=== PATIENT | male | born 1970 | race African-American/Black ===

== ENCOUNTER 2018-02-28 17:01 | Inpatient (IN) | payer MEDICAID ==
[~2018-02-28] VITALS: Ht 188 cm; Wt 109.1 kg
--- NOTE | ~2018-02-28 | OP ---
PATIENT NAME: REY KWONG MEDICAL RECORD: [id number] :74 LOCATION:D. D.2108 ADMISSION DATE:02/28/18 SURGEON: ARA NOYOLA MD DATE OF OPERATION: 03/07/2018 REFERRING PHYSICIAN: Dave Castañeda MD OPERATION PERFORMED: Insertion of a tunneled dialysis catheter with fluoroscopic guidance. SURGEON: Ara Noyola MD. ANESTHESIA: TIVA and Local 1% lidocaine plain. PREOPERATIVE NOTE: Ms. Kwong is a very nice 47-year-old -Malaysian male with end-stage renal disease on chronic hemodialysis in [place], [place]. He had been dialyzing successfully with a left radiocephalic arteriovenous fistula until he suffered thrombosis during the first week of February. He had a percutaneous mechanical thrombolysis procedure done at [facility] with 2 sticks and that was a successful procedure, but the patient then subsequently developed a severe MRSA infection at the proximal puncture site. I had taken him to the operating room last week and performed an excisional procedure of a typical MRSA type soft tissue infection with honeycombing and abscess. At that time, I also ligated his AV fistula and placed a temporary Trialysis catheter because of his bacteremia. His bacteremia has now cleared and he is essentially ready for discharge and he is brought to the operating room to place a tunneled catheter. I will plan to wait for about 4-6 weeks before returning him to the operating room to make a new brachiocephalic AV fistula there on the left and we will be waiting for his wound to heal as well of course. With the patient under TIVA in supine position, the neck was prepped and draped in a sterile manner. I removed the Trialysis catheter from the right internal jugular vein over a guidewire under fluoroscopy and then passed additional dilators and finally a dilator peel-away sheath was inserted. I chose a 19-cm HemoSplit tunneled dialysis catheter and made an incision beneath the clavicle and placed the new catheter in a subcutaneous tunnel between there and the cervical incision. I then inserted the catheter through the peel-away sheath and positioned it appropriately with both hips and the right atrium. Both lumens were then accessed and aspirated, free return of blood was confirmed. They were then flushed with saline and then heparin locked, clamped and capped. The catheter was fixed to the skin near the entry site with 2-0 Prolene and a chlorhexidine Biopatch was applied and the standard CVL dressing over that. The cervical incision was closed with inverted interrupted 3-0 Vicryl and Dermabond glue and it was dressed with Maxorb Ag, Tegaderm, and Cavilon skin prep. The patient tolerated the procedure well and was returned to his room in stable condition. The new dialysis catheter may be utilized immediately and the patient will be ready for discharge I believe today or tomorrow and have a return appointment in my office. TRANSINT:[id number] Voice Confirmation ID: [id number] DOCUMENT ID: [id number] OPERATIVE REPORT [id number] REY KWONG JAMES MD CC: [id number] DICTATION DATE: 03/21/18 1144 CAT DOG OR OTHER PET GROOMER: 03/21/18 1210 DIS IN 03/07/18 [facility] [address] [place] [address]
--- NOTE | ~2018-02-28 | OP ---
PATIENT NAME: REY ERIC MEDICAL RECORD: [id number] :74 LOCATION:D. D.2108 ADMISSION DATE:02/28/18 SURGEON: ARA NOYOLA MD DATE OF OPERATION: 03/02/2018 REFERRING PHYSICIAN: Domi Castañeda MD SURGEON: Ara Noyola MD ANESTHESIA: General per N[employer] WAREHOUSE SELECTOR. PREOPERATIVE DIAGNOSES: Methicillin-resistant Staphylococcus aureus staphylococcal skin and soft tissue infection, left arm at site of recent dialysis fistula access, now with abscess formation, cellulitis and likely sepsis with bacteremia. POSTOPERATIVE DIAGNOSES: Methicillin-resistant Staphylococcus aureus staphylococcal skin and soft tissue infection, left arm at site of recent dialysis fistula access, now with abscess formation, cellulitis and likely sepsis with bacteremia. OPERATION PERFORMED: First insertion of a right internal jugular 20-cm Trialysis acute dialysis catheter done with ultrasound and fluoroscopic guidance. Then, fistulogram followed by open ligation of AV fistula and then excisional debridement and drainage of complex honeycomb type abscess overlying the AV fistula in the proximal forearm with an application of wound VAC dressing. PREOPERATIVE NOTE: This very nice 47-year-old -[place] male from [place] has end-stage renal disease and is on chronic hemodialysis. He has been dialyzing with a left radiocephalic forearm AV fistula constructed by Dr. Nguyen at [facility] in May or June of this year. He has only been on dialysis for a few months. Earlier this week, he had thrombosed his graft and he had a fistulogram and mechanical thrombolysis procedure done at [facility] which was successful, but then he subsequently developed an abscess with systemic septic symptoms. The abscess is developing at the proximal access site in the forearm. The patient was admitted yesterday. He has been started on appropriate antibiotics and is brought to the operating room at this time with plans to place a dialysis catheter and then drain the abscess, do a fistulogram and possibly ligate the fistula. DESCRIPTION OF PROCEDURE: Under general anesthesia, the patient was prepped and draped in a sterile manner. Ultrasound was used to locate the right internal jugular vein which was of normal caliber and fully compressible and normal in every way. I made an incision at the base of the neck on the right and inserted a needle and then a guidewire under ultrasound guidance into the internal jugular vein and under fluoroscopy, advanced the wire into the right atrium. Dilators were passed and lastly a 20-cm Trialysis catheter was inserted. All 3 lumens were accessed and aspirated, free return of blood confirmed. They were then flushed easily with saline and heparin locked. The catheter was sutured in place with 2-0 Prolene and a standard CVL dressing with chlorhexidine Biopatch was applied. The patient was then totally reprepped and redraped with the left arm free in the operative field. This morning he is draining pus from several perforations OPERATIVE REPORT [id number] REY ERIC sites and the skin over this abscess. This has a very characteristic appearance of a honeycomb-type abscess with necrosis and induration consistent with community-acquired MRSA lesion. I accessed the fistula near the wrist with micropuncture technique and ultrasound guidance and performed a fistulogram, which showed no evidence of pseudoaneurysm or leak or for that matter obstruction. Ultrasound examination demonstrated extensive edema surrounding the fistula and no single discrete abscess cavity. The micropuncture needle was removed and hemostasis obtained at that puncture site with a [id number] 4-0 Prolene. At that point, I decided I would have to ligate this fistula and made a longitudinal incision over it distal to the abscess and exposed the fistula and ligated it doubly with 2-0 Vicryl. I then incised the abscess and actually excised a circular divot of skin and subcutaneous tissues. This was about 2 cm in diameter and then continued to debride necrotic and infected tissue beneath it. This exposed the fistula, but there was no pulsation present obviously. I went ahead and ligated this vein again distally with 2-0 Vicryl to be sure to minimize the risks of any bleeding. Debrided the wound thoroughly and infiltrated it with 0.25% Marcaine with epinephrine to help with hemostasis. Irrigated the wound and then placed a wound VAC dressing with a black sponge in the wound and applied a VeraFlo wound VAC device with plans to do intermittent Dakin solution irrigation postop. The incision through which the fistula was initially ligated was closed with several interrupted 4-0 Prolenes and then dressed wet to dry with gentamicin and Ancef solution. This wound is of course subject to becoming infected postop and will require wet-to-dry dressings and good nursing care and observation. It was dressed in such a way that is not under the plastic of the wound VAC dressing. The patient was awakened and taken to the recovery room in stable condition. Blood loss was about 5 cc, none replaced. All sponges, instruments and needles were accounted for. No drain was used other than the wound VAC dressing and I submitted a swab for culture and sensitivity and Gram stain, but I did not submit tissue for histopathology. PLAN: The patient will go back to the floor with his wound VAC dressing periodically irrigating with Dakin's, the arms to be elevated and the wet-to-dry portion of his dressing changed daily and the wound dressed with a saline wet gauze. The patient will be asked to shower daily with Hibiclens and apply Bactroban to both nares b.i.d. for 2 weeks. The patient is presently on vancomycin and Zosyn. I think this is a very characteristic MRSA infection and we probably can stop the Zosyn. I would like to put him on doxycycline in addition to the vancomycin. He will probably go home on doxycycline and perhaps a second antibiotic depending on his response and will need home health for wound VAC care and an outpatient followup in my office. TRANSINT:[id number] Voice Confirmation ID: [id number] DOCUMENT ID: [id number] ARA NOYOLA MD at 2153 CC: DOMI CASTAÑEDA MD [id number] DICTATION DATE: 03/02/18 1221 CORPORATE SCHEDULER: 03/02/18 1352 ADM IN [place] [id number] [place] [id number]
[2018-02-28 20:00] VITALS: BP 173/100
[2018-02-28 20:19] VITALS: BP 191/99; BMI 31.7
[2018-03-01] VITALS: BP 157/70
[2018-03-01 04:00] VITALS: BP 167/96
[2018-03-01 05:20] LABS: BASOPHILS 0.3 % (0-2); EOSINOPHILS 0.7 % (0-7); HEMATOCRIT 34.4 % (42.0-54.0); HEMOGLOBIN 11.5 g/dL (13.5-17.5); IMMATURE GRANULOCYTES 0.3 % (0-5); LYMPHOCYTES 11.6 % (15-50); MCH 26.5 pg (26.0-34.0); MCHC 33.4 g/dL (31.0-37.0); MCV 79.3 fL (80.0-100.0); MEAN PLATELET VOLUME 9.7 fL (7.4-10.4); MONOCYTES 16.7 % (2-11); NEUTROPHILS 70.4 % (40-80); PLATELET COUNT 237 10x3/uL (130-400); RBC 4.34 10x6/uL (4.20-6.10); RDW 13.9 % (11.5-14.5); WBC 11.9 10x3/uL (4.8-10.8)
[2018-03-01 05:55] LABS: ALBUMIN 3.2 g/dL (3.4-5.0); ANION GAP 15.2 mmol/L (8-16); BILIRUBIN - TOTAL 0.52 mg/dL (0.2-1.3); CALCIUM 8.9 mg/dL (8.5-10.1); CARBON DIOXIDE 24.5 mmol/L (21.0-32.0); CREATININE - SERUM 7.2 mg/dL (0.6-1.3); POTASSIUM - SERUM 3.7 mmol/L (3.5-5.1); PROTEIN - SERUM 7.7 g/dL (6.4-8.2); VANCOMYCIN - RANDOM 2.5 ug/mL (10.0-20.0)
[2018-03-01 07:54] VITALS: BP 161/85
[2018-03-01 10:59] VITALS: BMI 31.7
[2018-03-01 11:27] VITALS: BP 150/83
[2018-03-01 14:55] VITALS: BP 160/87
[2018-03-01 20:00] VITALS: BP 144/75
[2018-03-02] VITALS: BP 148/79
[2018-03-02 05:23] LABS: BASOPHILS 0.4 % (0-2); HEMATOCRIT 33.9 % (42.0-54.0); HEMOGLOBIN 11.1 g/dL (13.5-17.5); IMMATURE GRANULOCYTES 0.1 % (0-5); LYMPHOCYTES 15.7 % (15-50); MCHC 32.7 g/dL (31.0-37.0); MCV 79.4 fL (80.0-100.0); MEAN PLATELET VOLUME 10.2 fL (7.4-10.4); MONOCYTES 15.5 % (2-11); NEUTROPHILS 67.3 % (40-80); PLATELET COUNT 242 10x3/uL (130-400); RBC 4.27 10x6/uL (4.20-6.10); WBC 13.4 10x3/uL (4.8-10.8)
[2018-03-02 05:47] LABS: ANION GAP 18.7 mmol/L (8-16); CALCIUM 8.7 mg/dL (8.5-10.1); CREATININE - SERUM 7.7 mg/dL (0.6-1.3); PHOSPHOROUS 3.6 mg/dL (2.5-4.9); POTASSIUM - SERUM 3.7 mmol/L (3.5-5.1); VANCOMYCIN - RANDOM 13.4 ug/mL (10.0-20.0)
[2018-03-02 05:53] VITALS: BP 143/66
[2018-03-02 07:59] VITALS: BP 151/79
[2018-03-02 11:56] VITALS: Ht 188 cm; Wt 109.1 kg
[2018-03-02 15:47] VITALS: BP 146/86
[2018-03-02 20:00] VITALS: BP 152/87
[2018-03-03] VITALS: BP 150/86
[2018-03-03 04:00] VITALS: BP 159/92
[2018-03-03 05:37] LABS: BASOPHILS 0.5 % (0-2); EOSINOPHILS 2.8 % (0-7); HEMATOCRIT 34.2 % (42.0-54.0); HEMOGLOBIN 11.3 g/dL (13.5-17.5); IMMATURE GRANULOCYTES 0.3 % (0-5); LYMPHOCYTES 16.2 % (15-50); MCH 26.3 pg (26.0-34.0); MCV 79.7 fL (80.0-100.0); MEAN PLATELET VOLUME 10.4 fL (7.4-10.4); MONOCYTES 12.2 % (2-11); PLATELET COUNT 235 10x3/uL (130-400); RBC 4.29 10x6/uL (4.20-6.10); RDW 13.9 % (11.5-14.5); WBC 12.7 10x3/uL (4.8-10.8)
[2018-03-03 06:11] LABS: POTASSIUM - SERUM 3.5 mmol/L (3.5-5.1)
[2018-03-03 06:41] LABS: CALCIUM 8.6 mg/dL (8.5-10.1); CARBON DIOXIDE 23.5 mmol/L (21.0-32.0); PHOSPHOROUS 3.5 mg/dL (2.5-4.9)
[2018-03-03 06:45] LABS: CREATININE - SERUM 5.7 mg/dL (0.6-1.3)
[2018-03-03 08:04] VITALS: BP 153/90
[2018-03-03 11:01] VITALS: BP 142/86
[2018-03-03 20:00] VITALS: BP 148/75
[2018-03-04 00:11] VITALS: BP 170/80
[2018-03-04 04:00] VITALS: BP 159/86
[2018-03-04 04:07] LABS: BASOPHILS 0.8 % (0-2); EOSINOPHILS 3.7 % (0-7); HEMATOCRIT 34.1 % (42.0-54.0); HEMOGLOBIN 11.3 g/dL (13.5-17.5); IMMATURE GRANULOCYTES 0.3 % (0-5); LYMPHOCYTES 21.7 % (15-50); MCH 25.9 pg (26.0-34.0); MCHC 33.1 g/dL (31.0-37.0); MCV 78.2 fL (80.0-100.0); MEAN PLATELET VOLUME 9.7 fL (7.4-10.4); MONOCYTES 12.9 % (2-11); NEUTROPHILS 60.6 % (40-80); PLATELET COUNT 232 10x3/uL (130-400); RBC 4.36 10x6/uL (4.20-6.10); RDW 13.4 % (11.5-14.5); WBC 9.8 10x3/uL (4.8-10.8)
[2018-03-04 04:28] LABS: CALCIUM 8.5 mg/dL (8.5-10.1); CARBON DIOXIDE 26.4 mmol/L (21.0-32.0); CREATININE - SERUM 6.2 mg/dL (0.6-1.3); POTASSIUM - SERUM 3.4 mmol/L (3.5-5.1); VANCOMYCIN - RANDOM 15.3 ug/mL (10.0-20.0)
[2018-03-04 09:08] VITALS: BP 187/78
[2018-03-04] MEDS ORDERED: HYDROCODON-ACE1 EAC7 PO (10:08)
[2018-03-04] MEDS ORDERED: FUROSEMIDE40 MG PO (10:09)
[2018-03-04] MEDS ORDERED: RENVELA800 MG PO (10:10)
[2018-03-04] MEDS ORDERED: HYDRALAZINE HC100 MG PO (10:10)
[2018-03-04] MEDS ORDERED: NORVASC10 MG PO (10:10)
[2018-03-04] MEDS ORDERED: COREG25 MG PO (10:11)
[2018-03-04] MEDS ORDERED: BASAGLAR K100 UNIT/1 SC (10:13)
[2018-03-04 12:33] VITALS: BP 157/92
[2018-03-04 15:12] VITALS: BP 134/93
[2018-03-04 20:46] VITALS: BP 157/82
[2018-03-05] VITALS: BP 153/79
[2018-03-05 03:26] LABS: BASOPHILS 0.8 % (0-2); EOSINOPHILS 3.5 % (0-7); HEMATOCRIT 32.7 % (42.0-54.0); IMMATURE GRANULOCYTES 0.4 % (0-5); LYMPHOCYTES 24.2 % (15-50); MCH 26.4 pg (26.0-34.0); MCHC 33.6 g/dL (31.0-37.0); MCV 78.6 fL (80.0-100.0); MEAN PLATELET VOLUME 9.9 fL (7.4-10.4); MONOCYTES 12.7 % (2-11); NEUTROPHILS 58.4 % (40-80); PLATELET COUNT 266 10x3/uL (130-400); RBC 4.16 10x6/uL (4.20-6.10); RDW 13.6 % (11.5-14.5); WBC 8.3 10x3/uL (4.8-10.8)
[2018-03-05 03:39] LABS: ANION GAP 16.6 mmol/L (8-16); CALCIUM 9.1 mg/dL (8.5-10.1); CREATININE - SERUM 6.4 mg/dL (0.6-1.3); PHOSPHOROUS 4.4 mg/dL (2.5-4.9); POTASSIUM - SERUM 3.6 mmol/L (3.5-5.1); VANCOMYCIN - RANDOM 19.2 ug/mL (10.0-20.0)
[2018-03-05 05:55] VITALS: BP 154/84
[2018-03-05 07:52] VITALS: BP 178/96
[2018-03-05 10:49] VITALS: BP 184/95
[2018-03-05 14:44] VITALS: BP 157/96
[2018-03-05 20:24] VITALS: BP 161/120
[2018-03-06] VITALS: BP 151/84
[2018-03-06 06:19] VITALS: BP 148/78
[2018-03-06 06:29] LABS: HEMATOCRIT 33.8 % (42.0-54.0); HEMOGLOBIN 11.1 g/dL (13.5-17.5); IMMATURE GRANULOCYTES 0.4 % (0-5); LYMPHOCYTES 26.4 % (15-50); MCHC 32.8 g/dL (31.0-37.0); MCV 79.2 fL (80.0-100.0); MEAN PLATELET VOLUME 10.2 fL (7.4-10.4); MONOCYTES 14.8 % (2-11); NEUTROPHILS 54.4 % (40-80); PLATELET COUNT 247 10x3/uL (130-400); RBC 4.27 10x6/uL (4.20-6.10); RDW 13.8 % (11.5-14.5); WBC 7.3 10x3/uL (4.8-10.8)
[2018-03-06 06:53] LABS: CALCIUM 8.6 mg/dL (8.5-10.1); CARBON DIOXIDE 26.6 mmol/L (21.0-32.0); PHOSPHOROUS 4.1 mg/dL (2.5-4.9); POTASSIUM - SERUM 3.6 mmol/L (3.5-5.1); VANCOMYCIN - RANDOM 17.4 ug/mL (10.0-20.0)
[2018-03-06 06:54] LABS: CREATININE - SERUM 4.5 mg/dL (0.6-1.3)
[2018-03-06 09:30] VITALS: BP 145/93
[2018-03-06 19:02] VITALS: BP 190/94
[2018-03-06 20:00] VITALS: BP 178/84
[2018-03-07 00:46] VITALS: BP 172/84
[2018-03-07 03:48] LABS: INR 1.08 (0.85-1.17); PROTIME 13.6 SECONDS (11.6-15.0)
[2018-03-07 04:00] VITALS: BP 188/93
[2018-03-07 08:18] LABS: ALBUMIN 2.9 g/dL (3.4-5.0); ANION GAP 16.1 mmol/L (8-16); BILIRUBIN - TOTAL 0.36 mg/dL (0.2-1.3); CALCIUM 8.9 mg/dL (8.5-10.1); CREATININE - SERUM 5.1 mg/dL (0.6-1.3); PROTEIN - SERUM 7.6 g/dL (6.4-8.2)
[2018-03-07 08:22] LABS: POTASSIUM - SERUM 4.1 mmol/L (3.5-5.1)
[2018-03-07] MEDS ORDERED: VIBRAMYCIN 100100 MG PO (09:17)
== END 2018-03-07 14:43 | disposition home health service (06) | DRG 252 ==
LOC: D.M2 17:01
PROVIDERS: Anesthesiology; Internal Medicine Nephrology; Surgery
PROC: 5A1D70Z Performance of Urinary Filtration, Intermittent, Less than 6 Hours Per Day (ICD-10-PCS; 2018-03-02)
PROC: 03LY0ZZ Occlusion of Upper Artery, Open Approach (ICD-10-PCS; principal; 2018-03-02 09:00)
PROC: 02H633Z Insertion of Infusion Device into Right Atrium, Percutaneous Approach (ICD-10-PCS; 2018-03-02 09:00)
PROC: B2141ZZ Fluoroscopy of Right Heart using Low Osmolar Contrast (ICD-10-PCS; 2018-03-02 09:00)
PROC: B51W1ZZ Fluoroscopy of Dialysis Shunt/Fistula using Low Osmolar Contrast (ICD-10-PCS; 2018-03-02 09:00)
PROC: 0JDG3ZZ Extraction of Right Lower Arm Subcutaneous Tissue and Fascia, Percutaneous Approach (ICD-10-PCS; 2018-03-02 09:00)
PROC: 05PYX3Z Removal of Infusion Device from Upper Vein, External Approach (ICD-10-PCS; 2018-03-07)
PROC: 05HM33Z Insertion of Infusion Device into Right Internal Jugular Vein, Percutaneous Approach (ICD-10-PCS; 2018-03-07)
DX: T82.7XXA Infection and inflammatory reaction due to other cardiac and vascular devices, implants and grafts, initial encounter (principal); A41.02 Sepsis due to Methicillin resistant Staphylococcus aureus; N18.6 End stage renal disease; I12.0 Hypertensive chronic kidney disease with stage 5 chronic kidney disease or end stage renal disease; Y83.8 Other surgical procedures as the cause of abnormal reaction of the patient, or of later complication, without mention of misadventure at the time of the procedure; Z99.2 Dependence on renal dialysis; D63.1 Anemia in chronic kidney disease

== ENCOUNTER → 2018-05-07 07:39 | Day surgery (SDC) | payer MEDICARE ==
[~2018-05-07] VITALS: Ht 188 cm; Wt 113.4 kg
--- NOTE | ~2018-05-07 | OP ---
PATIENT NAME: REY ERIC MEDICAL RECORD: [id number] :74 LOCATION:[facility] ADMISSION DATE: SURGEON: ARA NOYOLA MD DATE OF OPERATION: 05/07/2018 REFERRED BY: 1. Domi Harrison MD 2. Nani Lyons MD, of [place] PREOPERATIVE DIAGNOSES: ESRD; history of MRSA infection with abscess, left forearm; and hypertension. POSTOPERATIVE DIAGNOSES: ESRD; history of MRSA infection with abscess, left forearm; and hypertension. OPERATION PERFORMED: Creation of a left brachial artery to cephalic vein Jake-type AV fistula. SURGEON: Ara Noyola MD ANESTHESIA: General with LMA plus regional nerve block per INSTRUMENT SHOP SUPERVISOR. PREOPERATIVE NOTE: Mr. Ruffin is a very nice 47-year-old -[place] male who presented a few months ago with a functioning AV fistula in his left forearm which, following an intervention at [facility], had developed an MRSA abscess at the proximal puncture site in the mid forearm. He was operated on and an area of skin and subcutaneous tissues was excised and his fistula was ligated. He was treated in the hospital with antibiotics and a temporary dialysis catheter until he was thought to be ready for discharge. A tunneled catheter was placed and he was sent home on wet-to-dry dressings. He has been receiving wet-to-dry dressings and antibiotics at home in [place], and at this time, his wound has healed and he has no signs of sepsis or persistent MRSA infection. He is returned to the operating room as an outpatient today to create a new more proximal fistula in the left arm. I plan a brachiocephalic. In the supine position under anesthesia, the patient was prepped and draped in sterile manner. Topical nitroglycerin paste was applied and a Andrea drain was used as a venous tourniquet. I examined him with duplex ultrasound and I was somewhat surprised to see how much the cephalic vein in the antecubital space and above had shrunk. It appears that the fistula had enjoyed about equal runoff via both the basilic and the cephalic veins, possibly even more via the basilic vein, which at this time is still larger. I decided though that I could do a brachiocephalic, which of course would not require translocation, etc. A transverse antecubital incision was made and the artery was exposed, mobilized, and controlled with Silastic loops. The median cubital vein draining to the cephalic was dissected from the surrounding structures. Tributaries were divided between Vicryl ligatures. The vein was transected, bevelled, flushed with heparinized saline, and clamped proximally with an atraumatic vascular clamp. The artery was occluded with loops and a small arteriotomy was made and the artery was flushed proximally and distally with heparinized saline. An end-to-side, end of vein to side of artery anastomosis was then carried out with running 7-0 Prolene. When complete and with the release of the occluding clamp and vascular loops, excellent flow was immediately established and there was persistence of good pulsatile flow at the radial artery at the wrist. There was OPERATIVE REPORT [id number] REY ERIC no bleeding. The wound was irrigated with saline and then closed with interrupted inverted 3-0 Vicryl, running intracuticular 4-0 Stratafix, and Dermabond glue. Dressing of Maxorb Ag, Tegaderm, and Cavilon skin prep was applied. The site of the old abscess had healed actually to a central wound about the size of a pencil, where there was an area of not quite fully epithelialized granulation tissue. It was moist, but was not draining. On palpation, it was firm in that area as one might expect. There was no fluctuance and no other clinical evidence of persistent or new infection. I did swab the area of granulation tissue to look for MRSA, and at the end of the operation, this site was dressed with Bactroban ointment, Maxorb Ag, and Tegaderm. The patient was awakened and taken to the recovery room. He will go home later today and follow up with me in my office later next week. He will continue his usual dialysis schedule with his tunneled dialysis catheter. I expect his new fistula to require 4-6 weeks, probably 6 weeks to mature and be ready to access. Blood loss during the procedure was insignificant and unreplaced. Sponges, instruments, and needles were accounted for. No specimen was submitted for histopathology. No drain was utilized. TRANSINT:[id number] Voice Confirmation ID: [id number] DOCUMENT ID: [id number] ARA NOYOLA MD at 1150 CC: DOMI HARRISON MD and NANI LYONS III MD [id number] DICTATION DATE: 05/07/18 3826 PATENT SOLICITOR: 05/07/18 1742 [facility] 05/07/18 [facility] [address] [place] [address]
[~2018-05-07 07:39] MED LIST: BASAGLAR K100 UNIT/1 SC; COREG25 MG PO; FUROSEMIDE40 MG PO; HYDRALAZINE HC100 MG PO; HYDROCODON-ACE1 EAC7 PO; NORVASC10 MG PO; RENVELA800 MG PO; VIBRAMYCIN 100100 MG PO
[2018-05-07 08:09] LABS: EOSINOPHILS 2.9 % (0-7); HEMATOCRIT 36.6 % (42.0-54.0); IMMATURE GRANULOCYTES 0.2 % (0-5); MCH 26.7 pg (26.0-34.0); MCHC 32.8 g/dL (31.0-37.0); MCV 81.5 fL (80.0-100.0); MEAN PLATELET VOLUME 10.4 fL (7.4-10.4); MONOCYTES 12.4 % (2-11); NEUTROPHILS 45.5 % (40-80); PLATELET COUNT 229 10x3/uL (130-400); RBC 4.49 10x6/uL (4.20-6.10); RDW 15.7 % (11.5-14.5)
[2018-05-07 08:17] LABS: ANION GAP 14.6 mmol/L (8-16); CALCIUM 8.4 mg/dL (8.5-10.1); CARBON DIOXIDE 26.4 mmol/L (21.0-32.0); CREATININE - SERUM 4.5 mg/dL (0.6-1.3)
[2018-05-07 08:34] LABS: APTT 26.7 SECONDS (22.8-39.4); PROTIME 12.7 SECONDS (11.6-15.0)
[2018-05-07 10:49] VITALS: Ht 188 cm; Wt 113.4 kg
== END | disposition home or self-care (01) ==
LOC: D.OPS 04-23 11:30
PROVIDERS: Internal Medicine Nephrology
DX: I12.0 Hypertensive chronic kidney disease with stage 5 chronic kidney disease or end stage renal disease (principal); N18.6 End stage renal disease; Z99.2 Dependence on renal dialysis; Z86.14 Personal history of Methicillin resistant Staphylococcus aureus infection; Z01.812 Encounter for preprocedural laboratory examination